=== PATIENT | female | born 1950 ===

== ENCOUNTER 2017-05-20 09:30 | Observation (INO) | payer OTHER ==
[2017-05-20 09:31] VITALS: BMI 22.2
--- NOTE | 2017-05-20 10:55 | ED PDOC ---
HPI: Neurologic - General Time Seen by Provider: 05/20/17 09:42 Chief Complaint (Nursing): Dizziness/Lightheaded Chief Complaint (Provider): dizziness Source: patient Exam Limitations: no limitations - History of Present Illness Timing/Duration: 4-6 hours Severity: mild Associated Symptoms: fever/chills, trouble walking Allergies/Adverse Reactions: Allergies No Known Allergies Allergy (Verified 05/05/17 18:12) Home Medications: Ambulatory Orders Albuterol Sulfate [Albuterol Hfa] 0.09 mg IH Q4 PRN 10/30/14 Enalapril Maleate [Enalapril] 10 mg PO BID 10/30/14 oxyCODONE/Acetaminophen [Percocet 5/325 mg Tab] 1 tab PO BID PRN #4 tab Ibuprofen [Motrin] 600 mg PO TID #15 tab 07/24/16 Simvastatin 40 mg PO HS 07/24/16 Ondansetron [Zofran Odt] 4 mg PO TID #6 odt 05/05/17 Additional Complaint(s): 66 yo ,f, PMHx/o Asthma, GERD, HTN, HLD, Arhritis, Anxiety brought to Ed by EMS c/o dizziness started 2 AM. She reports that she was sleeping and woke up feeling very dizzy associated with chills and she tried to stand up and walk but with difficulty, very unstable to walk, lost her balance and went to a side of the room. She tried to go to the bathroom and still with dizziness and room spinning sensation and fell down and hit her head frontal side. She reports 1 episode of urinary incontinence while on the bed and had 1 episode of fecal incontinence while going to the bathroom. She denies syncope, weakness, numbness, chest pain, palpitation, slurred speech, headache, vomiting, diarrhea , dysuria. Patient reports dry cough for the last 2 days associated with yellowish rhinorrhea. On evaluation in ED patient reports nausea and still with mild dizziness, Oriented to person, place, not well to time Past Medical History Vital Signs: Last Vital Signs Temp 99.7 F H 05/20/17 09:32 Pulse 90 05/20/17 09:32 Resp 16 05/20/17 09:32 BP 154/77 H 05/20/17 09:32 Pulse Ox 93 L 05/20/17 09:32 - Medical History PMH: Arthritis, Asthma, Gastritis, GERD, HTN, Hypercholesterolemia - Family History Family History: States: Unknown Family Hx - Immunization History Hx Tetanus Toxoid Vaccination: Yes Hx Influenza Vaccination: Yes Hx Pneumococcal Vaccination: Yes - Home Medications Home Medications: Ambulatory Orders Medication Instructions Recorded Albuterol Sulfate [Albuterol Hfa] 0.09 mg IH Q4 PRN 10/30/14 Enalapril Maleate [Enalapril] 10 mg PO BID 10/30/14 oxyCODONE/Acetaminophen [Percocet 1 tab PO BID PRN #4 tab 07/23/16 5/325 mg Tab] Ibuprofen [Motrin] 600 mg PO TID #15 tab 07/24/16 Simvastatin 40 mg PO HS 07/24/16 Ondansetron [Zofran Odt] 4 mg PO TID #6 odt 05/05/17 - Allergies Allergies/Adverse Reactions: Allergies Allergy/AdvReac Type Severity Reaction Status Date / Time No Known Allergies Allergy Verified 05/05/17 18:12 Review of Systems Constitutional: Positive for: Chills Eyes: Negative for: Vision Change Cardiovascular: Negative for: Chest Pain Respiratory: Positive for: Cough. Negative for: Shortness of Breath Gastrointestinal: Positive for: Nausea Genitourinary Female: Negative for: Dysuria Neurological: Positive for: Dizziness Physical Exam - Physical Exam Appears: Positive for: Non-toxic, No Acute Distress Head Exam: Positive for: NORMOCEPHALIC Skin: Positive for: Normal Color Eye Exam: Positive for: Nystagmus (horizontal, more to the left ) Neck: Positive for: Normal Cardiovascular/Chest: Positive for: Regular Rate, Rhythm Respiratory: Positive for: Normal Breath Sounds. Negative for: Crackles, Rales , Rhonchi, Wheezing Gastrointestinal/Abdominal: Positive for: Soft. Negative for: Tenderness, Guarding Back: Positive for: Normal Inspection Neurologic/Psych: Positive for: Alert, Oriented (x2), Other. 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 Plan CBC, CMP, UA, troponin, Influenza CT Head w contrast and w/o contrast. Meclizine 50 mg Zofran 4 mg IV 14:20 Patient reports feeling better, was able to ambulate to the restroom with normal gait. Reports that dizziness resolved after medication. CBC showed WBC 12.7 . EKG: NSR. T wave neg D1, AVL, V5. to consider lateral ischemia. DI, V5 is new ischemic changes compared with EKG 2 02/2016. Troponin 0.0160. second troponin 0.0130. Patient's primary Dr notified and agree to keep patient in observation x 24 hours for the new ischemic changes in EKG. Disposition - Clinical Impression Clinical Impression: Vertigo - Disposition Disposition Time: 17:10 Condition: FAIR Forms: [employer] (Cuban) - Pt Status Changed To: Hospital Disposition Of: Observation
[2017-05-20 11:06] LABS: BASO % 0.4 % (0.0-2.0); HEMOGLOBIN 13.1 g/dL (12.0-16.0); LYMPH # 1.7 K/uL (1.0-4.3); LYMPH % 13.4 % (20.0-40.0); MEAN CORPUSCULAR HGB CONC 32.9 g/dL (33.0-37.0); MONO # 0.8 K/uL (0.0-0.8); NEUT # 10.2 K/uL (1.8-7.0); NEUT % 80.2 % (50.0-75.0); NRBC % 0.1 % (0.0-0.0); RBC 4.52 Mil/uL (3.80-5.20); RED CELL DISTRIBUTION WIDTH 13.7 % (11.5-14.5); WHITE BLOOD COUNT 12.7 K/uL (4.8-10.8)
[2017-05-20 11:07] LABS: ALB/GLOB RATIO 1.3 (1.0-2.1); ALBUMIN 3.8 g/dL (3.5-5.0); ALT/SGPT 39 U/L (9-52); AST/SGOT 22 U/L (14-36); BLOOD UREA NITROGEN 18 mg/dl (7-17); CALCIUM 8.9 mg/dL (8.4-10.2); GFR AFRICAN-AMERICAN > 60; GFR NON-AFRICAN AMERICAN > 60
[2017-05-20] MEDS ORDERED: Iohexol 300 100 ML IJ ONE (11:44)
[2017-05-20] MEDS ORDERED: Sodium Chloride 0.9% 100 ML ONE (11:44)
--- NOTE | 2017-05-20 12:53 | CT ---
PROCEDURE: CT HEAD WITH AND WITHOUT CONTRAST HISTORY: Dizziness.Fall.hx/o head aneurysm surgery COMPARISON: None available. TECHNIQUE: Axial computed tomography images were obtained through the head/brain with and without intravenous contrast enhancement. Contrast dose: Omnipaque 300, 95 cc Radiation dose: Total exam DLP = 1609.35 mGy-cm. This CT exam was performed using one or more of the following dose reduction techniques: Automated exposure control, adjustment of the mA and/or kV according to patient size, and/or use of iterative reconstruction technique. FINDINGS: HEMORRHAGE: No intracranial hemorrhage. BRAIN: Artifacts from prior aneurysm clip at the right lateral side of the [place] generates artifacts limiting evaluation the inferior right frontal lobe and medial right temporal lobe. Otherwise, good corticomedullary differentiation is appreciated and there is no mass effect. The sulci and cisterns appear minimally splenic base with compatible with limited diffuse cerebral atrophy. Barrera and white-matter density appear within normal limits. No suspicious extra-axial fluid collection. Midline brain and appears diffusely unremarkable. Following intravenous contrast administration, enhancement pattern is within normal limits above and below the tentorium. VENTRICLES: Unremarkable. No hydrocephalus. CALVARIUM: Patient seen to be status post prior right pterional craniotomy the calvarium and skullbase are otherwise unremarkable appearing. SINUSES: Unremarkable as visualized. No significant inflammatory changes. MASTOID AIR CELLS: Unremarkable as visualized. No mastoid effusion. OTHER FINDINGS: None. IMPRESSION: Prior right parietal craniotomy with aneurysm clip identified in the right side of the [place] region. No acute intracranial findings as per standard CT criteria with right frontal and parietal evaluation limitations caused by artifact from the right aneurysm clip as discussed above. Limited diffuse cerebral atrophy appreciated. No suspicious contrast enhancement appreciated.
[2017-05-20 15:39] LABS: RENAL EPITHELIAL 2 /hpf (0-3); SQUAMOUS EPITHIAL < 1 /hpf (0-5); URINE BILIRUBIN NEGATIVE (NEGATIVE); URINE BLOOD NEGATIVE (NEGATIVE); URINE CLARITY CLEAR (Clear); URINE COLOR YELLOW (YELLOW); URINE GLUCOSE (UA) NEG (Normal); URINE LEUKOCYTE ESTERASE NEG Leu/uL (Negative); URINE NITRATE NEGATIVE (NEGATIVE); URINE PROTEIN NEGATIVE (NEGATIVE)
[2017-05-20] MEDS ORDERED: Sodium Chloride 0.9% 500 ML IV SCH (17:00)
--- NOTE | 2017-05-20 19:06 | CARD ---
APPROVED REPORT EKG Measurement Heart [id number] 120P26 [id number] <Conclusion> Normal sinus rhythm T wave abnormality, consider lateral ischemia Abnormal ECG
--- NOTE | 2017-05-20 19:08 | CARD ---
APPROVED REPORT EKG Measurement Heart [id number] [place] 118P2 [id number] <Conclusion> Normal sinus rhythm T wave abnormality, consider lateral ischemia Abnormal ECG
--- NOTE | 2017-05-21 08:59 | RAD ---
PROCEDURE: CHEST RADIOGRAPH, 1 VIEW HISTORY: influenza.fever COMPARISON: None available. FINDINGS: LUNGS: Clear. PLEURA: No pneumothorax or pleural fluid seen. CARDIOVASCULAR: Atherosclerotic aortic calcifications. Cardiomediastinal silhouette appears prominent; however, this cannot be accurately assessed on an AP projection. OSSEOUS STRUCTURES: Degenerative changes. VISUALIZED UPPER ABDOMEN: Normal. OTHER FINDINGS: None. IMPRESSION: No active disease.
[2017-05-21] MEDS ORDERED: Venlafaxine 50 MG TAB PO SCH (09:00)
[2017-05-21 09:33] LABS: HEMOGLOBIN 13.5 g/dL (12.0-16.0); MEAN CELL VOLUME 87.7 fl (81.0-99.0); MEAN CORPUSCULAR HEMOGLOBIN 29.4 pg (27.0-31.0); MEAN CORPUSCULAR HGB CONC 33.5 g/dL (33.0-37.0); RBC 4.59 Mil/uL (3.80-5.20); RED CELL DISTRIBUTION WIDTH 14.1 % (11.5-14.5); WHITE BLOOD COUNT 7.8 K/uL (4.8-10.8)
[2017-05-21 15:46] VITALS: BP 104/65; PULSE 79; RESP 20; TEMP 99; O2SAT 94
--- NOTE | 2017-05-21 17:12 | CP.PCM.HP ---
Past Patient History - Infectious Disease Hx of Infectious Diseases: None - Past Medical History & Family History Past Medical History?: Yes - Past Social History Smoking Status: Never Smoked - CARDIAC Hx Cardiac Disorders: Yes Hx Hypercholesterolemia: Yes Hx Hypertension: Yes - PULMONARY Hx Respiratory Disorders: Yes Hx Asthma: Yes - NEUROLOGICAL Hx Neurological Disorder: No - HEENT Hx HEENT Problems: No - RENAL Hx Chronic Kidney Disease: No - ENDOCRINE/METABOLIC Hx Endocrine Disorders: No - HEMATOLOGICAL/ONCOLOGICAL Hx Blood Disorders: No Hx AIDS: No Hx Human Immunodeficiency Virus (HIV): No - INTEGUMENTARY Hx Dermatological Problems: No - MUSCULOSKELETAL/RHEUMATOLOGICAL Hx Arthritis: Yes Hx Falls: Yes Hx Osteoarthritis: Yes - GASTROINTESTINAL Hx Gastritis: Yes Hx Gastroesophageal Reflux: Yes - GENITOURINARY/GYNECOLOGICAL Hx Genitourinary Disorders: No - PSYCHIATRIC Hx Anxiety: Yes Hx Depression: Yes Hx Substance Use: No - SURGICAL HISTORY Hx Surgeries: Yes Hx Section: Yes Hx Orthopedic Surgery: Yes Other/Comment: craniotomy with aneurysm clips - ANESTHESIA Hx Anesthesia: Yes Hx Anesthesia Reactions: No Meds Allergies/Adverse Reactions: Allergies Allergy/AdvReac Type Severity Reaction Status Date / Time No Known Allergies Allergy Verified 05/05/17 18:12 Results - Vital Signs Recent Vital Signs: Last Vital Signs Temp 99 F 05/21/17 15:46 Pulse 79 05/21/17 15:46 Resp 20 05/21/17 15:46 BP 104/65 05/21/17 15:46 Pulse Ox 94 L 05/21/17 15:46 - Labs Result Diagrams: 05/21/17 09:10 05/20/17 10:45 Labs: Laboratory Results - last 24 hr 05/20/17 05/21/17 05/21/17 20:10 04:20 09:10 WBC 7.8 RBC 4.59 Hgb 13.5 Hct 40.2 MCV 87.7 MCH 29.4 MCHC 33.5 RDW 14.1 Plt Count 178 Troponin I 0.0180 0.0140 05/21/17 11:45 WBC RBC Hgb Hct MCV MCH MCHC RDW Plt Count Troponin I < 0.0120
--- NOTE | 2017-05-21 17:44 | CP.PCM.DIS ---
Provider - Provider Date of Admission: 05/20/17 17:09 Attending physician: Lena Israel MD Time Spent in preparation of Discharge (in minutes): 35 Hospital Course - Lab Results Lab Results: Most Recent Lab Values WBC 7.8 K/uL (4.8-10.8) 05/21/17 09:10 RBC 4.59 Mil/uL (3.80-5.20) 05/21/17 09:10 Hgb 13.5 g/dL (12.0-16.0) 05/21/17 09:10 Hct 40.2 % (34.0-47.0) 05/21/17 09:10 MCV 87.7 fl (81.0-99.0) 05/21/17 09:10 MCH 29.4 pg (27.0-31.0) 05/21/17 09:10 MCHC 33.5 g/dL (33.0-37.0) 05/21/17 09:10 RDW 14.1 % (11.5-14.5) 05/21/17 09:10 Plt Count 178 K/uL (130-400) 05/21/17 09:10 MPV 8.0 fl (7.2-11.7) 05/20/17 10:45 Neut % (Auto) 80.2 % (50.0-75.0) H 05/20/17 10:45 Lymph % (Auto) 13.4 % (20.0-40.0) L 05/20/17 10:45 [place] % (Auto) 6.0 % (0.0-10.0) 05/20/17 10:45 Eos % (Auto) 0.0 % (0.0-4.0) 05/20/17 10:45 Baso % (Auto) 0.4 % (0.0-2.0) 05/20/17 10:45 Neut # (Auto) 10.2 K/uL (1.8-7.0) H 05/20/17 10:45 Lymph # (Auto) 1.7 K/uL (1.0-4.3) 05/20/17 10:45 Marshall # (Auto) 0.8 K/uL (0.0-0.8) 05/20/17 10:45 Eos # (Auto) 0.0 K/uL (0.0-0.7) 05/20/17 10:45 Baso # (Auto) 0.0 K/uL (0.0-0.2) 05/20/17 10:45 Sodium 136 mmol/l (132-148) 05/20/17 10:45 Potassium 3.9 MMOL/L (3.6-5.0) 05/20/17 10:45 Chloride 94 mmol/L (98-107) L 05/20/17 10:45 Carbon Dioxide 27 mmol/L (22-30) 05/20/17 10:45 Anion Gap 19 (10-20) 05/20/17 10:45 BUN 18 mg/dl (7-17) H 05/20/17 10:45 Creatinine 0.8 mg/dl (0.7-1.2) 05/20/17 10:45 Est GFR ( Amer) > 60 05/20/17 10:45 Est GFR (Non-Af Amer) > 60 05/20/17 10:45 POC Glucose (mg/dL) 128 mg/dL (65-110) H 05/20/17 09:48 Random Glucose 116 mg/dL (65-105) H 05/20/17 10:45 Calcium 8.9 mg/dL (8.4-10.2) 05/20/17 10:45 Total Bilirubin 1.1 mg/dl (0.2-1.3) 05/20/17 10:45 AST 22 U/L (14-36) 05/20/17 10:45 ALT 39 U/L (9-52) 05/20/17 10:45 Alkaline Phosphatase 62 U/L (38-126) 05/20/17 10:45 Troponin I < 0.0120 ng/mL (0.00-0.120) 05/21/17 11:45 Total Protein 6.7 G/DL (6.3-8.2) 05/20/17 10:45 Albumin 3.8 g/dL (3.5-5.0) 05/20/17 10:45 Globulin 2.9 gm/dL (2.2-3.9) 05/20/17 10:45 Albumin/Globulin Ratio 1.3 (1.0-2.1) 05/20/17 10:45 Urine Color Yellow (YELLOW) 05/20/17 15:25 Urine Clarity Clear (Clear) 05/20/17 15:25 Urine pH 6.0 (5.0-8.0) 05/20/17 15:25 Ur Specific [place] > 1.060 (1.003-1.030) H 05/20/17 15:25 Urine Protein Negative mg/dL (NEGATIVE) 05/20/17 15:25 Urine Glucose (UA) Neg mg/dL (Normal) 05/20/17 15:25 Urine Ketones Negative mg/dL (NEGATIVE) 05/20/17 15:25 Urine Blood Negative (NEGATIVE) 05/20/17 15:25 Urine Nitrate Negative (NEGATIVE) 05/20/17 15:25 Urine Bilirubin Negative (NEGATIVE) 05/20/17 15:25 Urine Urobilinogen 2.0 mg/dL (0.2-1.0) H 05/20/17 15:25 Ur Leukocyte Esterase Neg Andre/uL (Negative) 05/20/17 15:25 Urine Microscopic WBC 2 /hpf (0-5) 05/20/17 15:25 Ur Squamous Epith Cells < 1 /hpf (0-5) 05/20/17 15:25 Ur Renal Epithelial Cell 2 /hpf (0-3) 05/20/17 15:25 Influenza Typ A,B (EIA) Pos for influenza a (NEGATIVE) H 05/20/17 10:45 Discharge Exam - Head Exam Head Exam: NORMOCEPHALIC Discharge Plan - Discharge Medications Prescriptions: levoFLOXacin [Levaquin] 500 mg PO DAILY 7 Days tab guaiFENesin/Dextromethorphan [Robitussin DM] 5 ml PO Q6 5 Days dose - Follow Up Plan Condition: FAIR Disposition: HOME/ ROUTINE
== END 2017-05-21 18:40 | disposition home or self-care (01) ==
LOC: H.ER 09:30 → H.ERHOLD 17:09 → H.TEL 18:55
PROVIDERS: ADMIT Internal Medicine; ATTEND Internal Medicine
DX: R42 Dizziness and giddiness (principal); F41.9 Anxiety disorder, unspecified; K21.9 Gastro-esophageal reflux disease without esophagitis; I10 Essential (primary) hypertension; E78.5 Hyperlipidemia, unspecified; E78.00 Pure hypercholesterolemia, unspecified; J45.909 Unspecified asthma, uncomplicated; K29.70 Gastritis, unspecified, without bleeding; M19.90 Unspecified osteoarthritis, unspecified site
CPT/HCPCS: 36415; 70470; 71045; 80053; 81003; 82948; 84484; 85025; 85027; 87804; 93005; 96374; 99285; G0378; J2405; Q9967

== ENCOUNTER 2018-02-22 20:28 | Emergency (ER) | payer OTHER ==
[2018-02-22 20:28] VITALS: BMI 22.2
--- NOTE | 2018-02-22 21:56 | ED PDOC ---
Lower Extremity Pain/Injury Time Seen by Provider: 02/22/18 20:45 Chief Complaint (Nursing): Lower Extremity Problem/Injury Chief Complaint (Provider): Lower Extremity Problem/Injury History Per: Patient History/Exam Limitations: no limitations Onset/Duration Of Symptoms: Days (x1) Additional Complaint(s): 67 y/o female with history of HTN, HLD, CVA (silent) presents with left lower extremity pain. Patient reports she has chronic left lower extremity pain and was told she has decreased circulation in her legs. However, she states that earlier today she had sudden onset left leg pain from her calf up to her thigh mostly in the back of her knee. Patient also states she has some numbness to her left toes. Patient denies fall, trauma, fever chills, night sweats. Patient further denies long distance travel, surgical history, or history of cancer. Patient states she has not taken anything for pain as of yet and decided to come to the ED for further evaluation. - Ankle/Foot Currently Unable To: Bear Weight Past Medical History Reviewed: Historical Data, Nursing Documentation, Vital Signs Vital Signs: Last Vital Signs Temp 97.9 F 02/22/18 20:38 Pulse 89 02/22/18 20:38 Resp 16 02/22/18 20:38 BP 149/95 H 02/22/18 20:38 Pulse Ox 96 02/22/18 20:38 - Medical History PMH: Anxiety, Arthritis, Asthma, Depression, Gastritis, GERD, HTN, Hypercholesterolemia Denies: HIV, Chronic Kidney Disease - Surgical History Surgical History: No Surg Hx - Family History Family History: States: Unknown Family Hx - Immunization History Hx Tetanus Toxoid Vaccination: Yes Hx Influenza Vaccination: Yes Hx Pneumococcal Vaccination: Yes - Home Medications Home Medications: Ambulatory Orders Medication Instructions Recorded Aspirin [Ecotrin] 81 mg PO DAILY 05/20/17 Atorvastatin [Lipitor] 40 mg PO HS 05/20/17 Enalapril Maleate [Vasotec] 10 mg PO DAILY 05/20/17 Alendronate [Fosamax] 70 mg PO QWK 02/22/18 Cholecalciferol (Vitamin D3) 5,000 unit PO QWK 02/22/18 [Vitamin D3] Diclofenac Sodium [Pennsaid] 4 gm TOP PRN PRN 02/22/18 Ibuprofen [Motrin Tab] 600 mg PO Q6 PRN 5 Days tab 02/23/18 - Allergies Allergies/Adverse Reactions: Allergies Allergy/AdvReac Type Severity Reaction Status Date / Time No Known Allergies Allergy Verified 02/22/18 20:38 Review of Systems ROS Statement: Except As Marked, All Systems Reviewed And Found Negative Constitutional: Negative for: Fever, Chills, Sweats Musculoskeletal: Positive for: Leg Pain (left) Neurological: Positive for: Numbness (left toes) Physical Exam - Reviewed Nursing Documentation Reviewed: Yes Vital Signs Reviewed: Yes - Physical Exam Appears: Positive for: Uncomfortable Head Exam: Positive for: ATRAUMATIC, NORMOCEPHALIC Pulses-Dorsalis Pedis (L): 2+ Pulses-Dorsalis Pedis (R): 2+ Pulses-Post. Tibialis (L): 2+ Pulses-Post. Tibialis (R): 2+ Extremity: Positive for: Normal ROM (full ROM at left hip, knee, and ankle), Tenderness (pain on palpation of posterior left knee), Calf Tenderness (pain on palpation of left calf). Negative for: Pedal Edema, Deformity, Swelling (left leg or ankle) Neurologic/Psych: Positive for: Alert, Oriented. Negative for: Motor/Sensory Deficits - ECG O2 Sat by Pulse Oximetry: 96 (RA) Pulse Ox Interpretation: Normal Medical Decision Making Medical Decision Making: Time: 21:42 Initial Impression: left lower extremity pain Initial Plan: * Venous Duplex of B/L LE * Toradol 30 mg IM Venous Duplex: negative for DVT on B/L LE exam. 12:25am: re-evaluated, pain improved, able to bear weight but with some continued pain. Return instruction given. Scribe Attestation: Documented by Navdeep Chao, acting as a scribe for Stormy Forbes PA-C. Provider Scribe Attestation: All medical record entries made by the Scribe were at my direction and personally dictated by me. I have reviewed the chart and agree that the record accurately reflects my personal performance of the history, physical exam, medical decision making, and the department course for this patient. I have also personally directed, reviewed, and agree with the discharge instructions and disposition. Disposition - Clinical Impression Clinical Impression: Leg pain - Patient ED Disposition Is Patient to be Admitted: No Counseled Patient/Family Regarding: Studies Performed, Diagnosis, Need For Followup, Rx Given - Disposition Referrals: Maribell Neff MD [Family Provider] - Disposition: Routine/Home Disposition Time: 00:25 Condition: STABLE Additional Instructions: Take Ibuprofen or Tylenol as needed for pain. Return to ER if you develop worsening pain or swelling or develop shortness of breath. Prescriptions: Ibuprofen [Motrin Tab] 600 mg PO Q6 PRN 5 Days tab PRN Reason: Pain, Moderate (4-7) Instructions: Muscle and Bone Pain (DC) Forms: [facility] (Marshallese) Print Language: ESTONIAN
[2018-02-23 00:55] VITALS: BP 132/80; PULSE 71; RESP 20; TEMP 97.7; O2SAT 97
--- NOTE | 2018-02-24 10:36 | US ---
Date of service: 02/22/2018 PROCEDURE: Bilateral lower extremity venous duplex Doppler. HISTORY: sudden LLE pain COMPARISON: None available. TECHNIQUE: Bilateral common femoral, superficial femoral, popliteal and posterior tibial veins were evaluated. Flow was assessed with color Doppler, compressibility, assessment of phasic flow and augmentation response. FINDINGS: COMMON FEMORAL VEIN: Right CFV: Unremarkable. Left CFV: Unremarkable. SUPERFICIAL FEMORAL VEIN: Right SFV: Unremarkable. Left SFV: Unremarkable. POPLITEAL VEIN: Right Popliteal: Unremarkable. Left Popliteal: Unremarkable. POSTERIOR TIBIAL VEIN: Right PTV: Unremarkable. Left PTV: Unremarkable. OTHER FINDINGS: None. IMPRESSION: No evidence of deep venous thrombosis. Concordant findings (preliminary report) provided by [facility].
== END 2018-02-23 00:57 | disposition home or self-care (01) ==
LOC: H.ER 20:28
DX: M79.605 Pain in left leg (principal); I10 Essential (primary) hypertension; Z86.59 Personal history of other mental and behavioral disorders; J45.909 Unspecified asthma, uncomplicated; Z79.82 Long term (current) use of aspirin; Z79.899 Other long term (current) drug therapy
CPT/HCPCS: 85378; 93970; 96372; 99284; J1885